=== PATIENT | male | born 1995 | race Caucasian/White ===

== ENCOUNTER 2023-05-01 04:30 | Emergency (ER) | payer SELFPAY ==
[~2023-05-01] VITALS: Ht 177.8 cm; Wt 73.0 kg
[2023-05-01 04:39] VITALS: O2SAT 99
[2023-05-01 05:28] VITALS: BP 143/93; PULSE 120; RESP 12; TEMP 99.8
== END 2023-05-01 05:51 | disposition home or self-care (01) ==
LOC: ER 04:46
DX: F15.90 Other stimulant use, unspecified, uncomplicated (principal); R00.2 Palpitations
CPT/HCPCS: 99283